=== PATIENT | male | born 2000 | race Caucasian/White ===

== ENCOUNTER 2023-06-25 23:55 | Emergency (ER) | payer OTHER ==
[~2023-06-25] VITALS: Ht 180.3 cm; Wt 82.0 kg
[2023-06-26] MEDS ORDERED: IPRATROPIUM BROMIDE (0.02%) 0.5MG/2.5ML NEB HHN STA (00:09)
[2023-06-26] MEDS ORDERED: ALBUTEROL (0.083%) 2.5MG/3ML NEB HHN STA (00:09)
[2023-06-26] MEDS ORDERED: SODIUM CHLORIDE 0.9% 1,000 ML IV ONE (00:15)
[2023-06-26] MEDS ORDERED: LORAZEPAM 1MG TABLET PO ONE (00:15)
[2023-06-26] MEDS ORDERED: OLANZAPINE 10 MG/VIAL IM ONE (01:00)
[2023-06-26 01:03] LABS: *AMPHETAMINES SCREEN URINE PRESUMPTIVE POSITIVE (NEGATIVE); *BARBITURATES SCREEN URINE NEGATIVE (NEGATIVE); *BENZODIAZEPINES SCREEN URINE NEGATIVE (NEGATIVE); *COCAINE SCREEN URINE NEGATIVE (NEGATIVE); CANNABINOID URINE SCREEN PRESUMPTIVE POSITIVE (NEGATIVE); ECSTASY MDMA SCREEN URINE CONF.TEST INDICATED (NEGATIVE); METHADONE URINE SCREEN Neg (NEGATIVE); OPIATES URINE SCREEN NEGATIVE (NEGATIVE); PHENCYCLIDINE URINE SCREEN NEGATIVE (NEGATIVE)
[2023-06-26 01:06] LABS: BASOPHILS % 0.5 % (0.0-2.0); CLARITY URINE CLOUDY (CLEAR); COLOR URINE DARK YELLOW (YELLOW); EOSINOPHILS % 0.2 % (0.0-5.0); GLUCOSE URINE NEGATIVE (NEGATIVE); HEMATOCRIT. 46.1 % (42.0-52.0); HEMOGLOBIN. 15.3 g/dL (14.0-18.0); KETONES URINE 1+ (NEGATIVE); LEUKOCYTE ESTERASE URINE TRACE (NEGATIVE); MEAN CORPUSCULAR HEMOGLOBIN 30.8 pg (28.0-32.0); MEAN CORPUSCULAR HGB CONC 33.2 g/dL (31.0-37.0); MEAN CORPUSCULAR VOLUME 92.7 fL (80.0-94.0); MONOCYTES % 7.9 % (2.0-8.0); NEUTROPHILS % 68.4 % (40.0-76.0); NITRITE URINE NEGATIVE (NEGATIVE); OCCULT BLOOD URINE NEGATIVE (NEGATIVE); PLATELET 413 x1000/uL (130-400); PROTEIN URINE 1+ (NEGATIVE); RED BLOOD CELL COUNT 4.97 mill/uL (4.7-6.1); RED CELL DISTRIBUTION WIDTH 14.2 % (11.6-14.6); WHITE BLOOD COUNT 18.7 x1000/uL (4.5-11.0)
[2023-06-26 01:11] LABS: ACETAMINOPHEN < 2 ug/mL (10-30); ALANINE AMINOTRANSFERASE 49 IU/L (10-49); ALBUMIN 5.3 g/dL (3.2-4.8); ASPARTATE AMINOTRANSFERASE 61 IU/L (<34); BILIRUBIN TOTAL 2.6 mg/dL (0.1-1.0); CALCIUM 10.1 mg/dL (8.7-10.4); CARBON DIOXIDE 21 mEq/L (21-32); CHLORIDE 101 mEq/L (98-107); GLUCOSE 105 mg/dL (70-105); PROTEIN TOTAL 9.2 g/dL (6.0-8.3); SODIUM 135 mEq/L (136-145); UREA NITROGEN BLOOD 8 mg/dL (9-23)
[2023-06-26 01:29] LABS: ETHANOL BLOOD < 10 mg/dL (<10)
[2023-06-26] MEDS ORDERED: POTASSIUM CHLORIDE 20MEQ/PACKET PO NR (02:15)
[2023-06-26] MEDS ORDERED: HALOPERIDOL LACTATE 5MG/ML VIAL IM ONE (02:15)
[2023-06-26] MEDS ORDERED: LORAZEPAM 2MG/ML INJ IM ONE (02:15)
[2023-06-26] MEDS ORDERED: DIPHENHYDRAMINE 50MG/ML VIAL IM ONE (02:15)
[2023-06-26 02:30] VITALS: PULSE 121; RESP 16; O2SAT 99
[2023-06-26] MEDS ORDERED: IPRATROPIUM BROMIDE (0.02%) 0.5MG/2.5ML NEB HHN NR (02:30)
[2023-06-26] MEDS ORDERED: ALBUTEROL (0.083%) 2.5MG/3ML NEB HHN NR (02:30)
[2023-06-26 02:47] LABS: SQUAMOUS EPITHELIAL CELL URINE FEW /lpf (RARE/1+)
[2023-06-26 02:51] LABS: RBC URINE 0-2 /hpf (0-2)
[2023-06-26 02:53] LABS: BACTERIA URINE NONE SEEN
[2023-06-26 08:33] VITALS: BP 116/71; PULSE 93; RESP 20; TEMP 98.3
== END 2023-06-26 10:05 | disposition home or self-care (01) ==
LOC: ER 23:55
DX: R45.851 Suicidal ideations (principal); F22 Delusional disorders; F15.20 Other stimulant dependence, uncomplicated; J45.909 Unspecified asthma, uncomplicated; F20.9 Schizophrenia, unspecified; Z20.822 Contact with and (suspected) exposure to COVID-19
CPT/HCPCS: 94640; 99285; 80053; 80305; 81003; 80307; 80329; 80320; 85025; 36415; 93005; 96372; 87426; Z7610 ×6; J3490; J1200; J1630; J2060; J7030; G0480

== ENCOUNTER 2023-08-05 15:11 | Emergency (ER) | payer MEDICAID ==
[~2023-08-05] VITALS: Ht 172.7 cm; Wt 77.0 kg
[2023-08-05] MEDS: HALOPERIDOL LACTATE 5MG/ML VIAL IM STA (15:17)
[2023-08-05 15:19] VITALS: TEMP 98.4; O2SAT 99
[2023-08-05] MEDS: LORAZEPAM 2MG/ML INJ IM ONE (16:00)
[2023-08-05 16:01] LABS: BASOPHILS % 0.7 % (0.0-2.0); EOSINOPHILS % 0.4 % (0.0-5.0); HEMATOCRIT. 42.3 % (42.0-52.0); HEMOGLOBIN. 14.5 g/dL (14.0-18.0); LYMPHOCYTES % 27.1 % (20.0-50.0); MEAN CORPUSCULAR HEMOGLOBIN 31.2 pg (28.0-32.0); MEAN CORPUSCULAR HGB CONC 34.2 g/dL (31.0-37.0); MEAN CORPUSCULAR VOLUME 91.4 fL (80.0-94.0); MEAN PLATELET VOLUME 7.6 fl (7.4-10.4); MONOCYTES % 12.6 % (2.0-8.0); NEUTROPHILS % 59.2 % (40.0-76.0); PLATELET 414 x1000/uL (130-400); RED BLOOD CELL COUNT 4.63 mill/uL (4.7-6.1); RED CELL DISTRIBUTION WIDTH 14.4 % (11.6-14.6); WHITE BLOOD COUNT 11.1 x1000/uL (4.5-11.0)
[2023-08-05 16:07] LABS: ACETAMINOPHEN < 2 ug/mL (10-30); ALANINE AMINOTRANSFERASE 56 IU/L (10-49); ALBUMIN 5.1 g/dL (3.2-4.8); ASPARTATE AMINOTRANSFERASE 32 IU/L (<34); BILIRUBIN TOTAL 1.4 mg/dL (0.1-1.0); CALCIUM 9.4 mg/dL (8.7-10.4); CARBON DIOXIDE 19 mEq/L (21-32); CHLORIDE 106 mEq/L (98-107); CREATININE 0.9 mg/dL (0.6-1.3); GLUCOSE 89 mg/dL (70-105); POTASSIUM 3.1 mEq/L (3.5-5.1); PROTEIN TOTAL 8.8 g/dL (6.0-8.3); SODIUM 137 mEq/L (136-145); UREA NITROGEN BLOOD 8 mg/dL (9-23)
[2023-08-05 16:13] LABS: ETHANOL BLOOD < 10 mg/dL (<10)
[2023-08-05 17:21] VITALS: BP 122/75; PULSE 80; RESP 17
[2023-08-05] MEDS ORDERED: POTASSIUM CHLORIDE 20MEQ/PACKET PO ONE (20:00)
== END 2023-08-05 17:37 | disposition home or self-care (01) ==
LOC: ER 15:30
DX: F29 Unspecified psychosis not due to a substance or known physiological condition (principal); J45.909 Unspecified asthma, uncomplicated; Z86.59 Personal history of other mental and behavioral disorders
CPT/HCPCS: 80053; 80307; 80329; 80320; 85025; 36415; 96372; 99284; J1630; J2060; G0480